=== PATIENT | female | born 1950 | race Caucasian/White ===

== ENCOUNTER 2016-09-16 10:44 | Outpatient (CLI) | payer OTHER | END 2016-09-16 10:45 | disposition home or self-care (01) | DX: D64.9 Anemia, unspecified (principal); E11.9 Type 2 diabetes mellitus without complications; E87.6 Hypokalemia ==

== ENCOUNTER 2016-10-02 14:20 | Outpatient (CLI) | payer OTHER | END 2016-10-02 23:59 | DX: Z01.812 Encounter for preprocedural laboratory examination (principal); M17.11 Unilateral primary osteoarthritis, right knee ==

== ENCOUNTER 2016-11-06 09:15 | Outpatient (CLI) | payer OTHER ==
[2016-11-06] MEDS ORDERED: DIPYRIDAMOLE 50 MG/10 ML VIAL IVP SCH (10:00)
[2016-11-06] MEDS ORDERED: LIDOCAINE/PRILOCAINE 2.5% CREAM 5 GM TUBE TOP ONE (10:00)
--- NOTE | 2016-11-06 11:37 | CARDIAC PROCEDURE NOTE ---
DATE OF SERVICE: 11/06/2016 00:00:00 PRIMARY CARE PHYSICIAN: Myla Denney DO. PROCEDURE: Pharmacologic stress test. PROCEDURE SYMPTOMS: Abnormal ECG with inferior Q-waves, preop Orthopedic Surgery. CARDIAC RISK FACTORS: Include age, diabetes, hypertension, and hyperlipidemia. PREVIOUS CARDIAC PROCEDURES: None. BASELINE ECG: NSR with IVCD. No inferior Q-waves present. Long QT. CLINICAL HISTORY: A 65-year-old female without known coronary artery disease. INITIAL RESTING VITAL SIGNS: BP 154/84, heart rate 82, height 64 inches, weight 220 pounds, BMI 37.47 . PROCEDURE AND FINDINGS: The patient's identity and date verified. Consent signed. Safety stop. Pharmacologic stress testing was performed with Persantine 0.57 mg/kg over 4 minutes. The heart rate increased to 105 beats per minute from the infusion. Blood pressure response was normal, decreasing t o 130/88 during the stress procedure. The patient developed mild infusion symptoms of chest tightness and mild dyspnea. Maximal ST segment depression with stress was 0 mm, there was a rare PVC. FINAL IMPRESSION 1. Negative electrocardiogram for ischemia in the setting of vasodilator stress. 2. Nondiagnostic stress test for angina. 3. Rare premature ventricular contraction (PVC). DISCUSSION AND RECOMMENDATIONS: Await myocardial perfusion report. JOB #: [id number] EXT JOB #:[id number]
--- NOTE | 2016-11-07 14:08 | Nuclear Medicine Report ---
EXAM: SINGLE-ISOTOPE PHARMACOLOGICAL STRESS TEST WITH REGADENOSON. SINGLE-ISOTOPE AND TWO-DAY REST/STRESS M YOCARDIAL PERFUSION SCANS WITH TOMOGRAPHIC IMAGING, QUANTITATIVE ANALYSIS, WALL MOTION ANALYSIS AND C ALCULATION OF EJECTION FRACTION. EXAM DATE: 11/06/2016 10:00 AM. CLINICAL HISTORY: Abnormal EKG, diabetes. Hypertension. COMPARISON: None. TECHNIQUE: A pharmacological stress was performed with the infusion of 56 mg Adenosine per protocol. According t o protocol, 30 mCi of Tc-99m sestamibi was injected for stress myocardial perfusion scan. Motion danica ection was applied when appropriate. The following day after the intravenous administration of 30 mCi of Tc-99m sestamibi, a rest myocardi al perfusion scan was done with tomography. Motion correction was applied when appropriate. Gated tomographic images were obtained for wall motion analysis and computation of left ventricular e jection fraction. FINDINGS: Stress perfusion images demonstrate no foci of reversible ischemia. There are no visible infarcts. The ventricle does not appear enlarged. Wall motion analysis demonstrates normal findings. The left ventricular end-diastolic volume is 106 cc. The left ventricular end-systolic volume is 30 c c. The left ventricular ejection fraction is calculated to be 71%. IMPRESSION: 1. No scintigraphic findings to indicate myocardial ischemia. Negative for infarct. 2. Left ventricular ejection fraction of 71%. 3. Normal segmental and global wall motion. 4. Normal left ventricular cavity size, no change with stress. [facility] Referring Provider Line: [phone] SITE ID: [id number]
[2016-11-13 18:09] VITALS: BP 154/84
== END 2016-11-06 09:16 | disposition home or self-care (01) ==
LOC: DI 09:15
PROVIDERS: ATTEND Family Medicine
DX: R94.31 Abnormal electrocardiogram [ECG] [EKG] (principal); E11.9 Type 2 diabetes mellitus without complications; I10 Essential (primary) hypertension; E78.2 Mixed hyperlipidemia; E66.9 Obesity, unspecified
CPT/HCPCS: 78452; 93017; A9500; J1245; J3490

== ENCOUNTER 2016-11-11 14:20 | Outpatient (CLI) | payer OTHER | END 2016-11-11 14:21 | disposition home or self-care (01) | LOC: SC 14:20 | PROVIDERS: ATTEND Specialist | DX: G47.10 Hypersomnia, unspecified (principal); G47.8 Other sleep disorders; R06.83 Snoring | CPT/HCPCS: 99205; 99212 ==

== ENCOUNTER 2016-12-23 19:21 | Outpatient (CLI) | payer MEDICARE, OTHER | END 2016-12-23 19:22 | disposition home or self-care (01) | LOC: SC 19:21 | PROVIDERS: ATTEND Internal Medicine Pulmonary Disease | DX: G47.33 Obstructive sleep apnea (adult) (pediatric) (principal); G47.61 Periodic limb movement disorder | CPT/HCPCS: 95810 ==

== ENCOUNTER 2017-01-06 14:18 | Outpatient (CLI) | payer MEDICARE | END 2017-01-06 14:19 | disposition home or self-care (01) | LOC: SC 14:18 | PROVIDERS: ATTEND Nurse Practitioner Family | DX: G47.33 Obstructive sleep apnea (adult) (pediatric) (principal); G47.61 Periodic limb movement disorder | CPT/HCPCS: 99214; G0463; 99212 ==

== ENCOUNTER 2017-01-27 11:45 | Outpatient (CLI) | payer MEDICARE ==
[2017-01-27 19:16] LABS: BASOPHILS # (AUTO) 0.1 10^3/uL (0.0-0.1); BASOPHILS % (AUTO) 1.2 %; EOSINOPHILS # (AUTO) 0.1 10^3/uL (0.0-0.7); EOSINOPHILS % (AUTO) 1.9 %; HCT - HEMATOCRIT 38.4 % (37.0-47.0); HGB - HEMOGLOBIN 12.7 g/dL (12.0-16.0); LYMPHOCYTES # (AUTO) 1.3 10^3/uL (1.5-3.5); LYMPHOCYTES % (AUTO) 24.8 %; MEAN CORPUSCULAR HEMOGLOBIN 28.8 pg (27.0-31.0); MEAN CORPUSCULAR VOLUME 87.5 fL (81.0-99.0); MEAN PLATELET VOLUME 8.2 fL (7.9-10.8); MONOCYTES # (AUTO) 0.5 10^3/uL (0.0-1.0); MONOCYTES % (AUTO) 8.7 %; NEUTROPHILS # (AUTO) 3.4 10^3/uL (1.5-6.6); NEUTROPHILS % (AUTO) 63.4 %; NUCLEATED RED BLOOD CELLS AUTO 0.1 /100WBC; RED BLOOD COUNT 4.39 10^6/uL (4.20-5.40); RED CELL DISTRIBUTION WIDTH 14.3 % (12.0-15.0); UNCORRECTED WHITE BLOOD COUNT 5.4 x10^3/uL; WHITE BLOOD COUNT 5.4 x10^3/uL (4.8-10.8)
[2017-01-27 19:30] LABS: HEMOGLOBIN A1C 0.8 g/dL
[2017-01-27 19:41] LABS: ALBUMIN/GLOBULIN RATIO 1.6 (1.0-2.2); BILIRUBIN,TOTAL 0.6 mg/dL (0.2-1.0); BUN - BLOOD UREA NITROGEN 21 mg/dL (6-20); CALCIUM 9.4 mg/dL (8.5-10.3); CARBON DIOXIDE - CO2 30 mmol/L (21-32); CHLORIDE 102 mmol/L (101-111); CHOL/HDL RATIO 3.8 (<4.4); CHOLESTEROL 193 mg/dL; CREATININE 0.9 mg/dL (0.4-1.0); GFR - MDRD 63 (>89); GLUCOSE 116 mg/dL (70-100); HDL CHOLESTEROL 51 mg/dL; LDL/HDL RATIO 1.8 (<4.4); POTASSIUM 3.6 mmol/L (3.5-5.0); SODIUM 142 mmol/L (135-145); TOTAL PROTEIN 6.9 g/dL (6.7-8.2); TRIGLYCERIDES 243 mg/dL; VLDL CHOLESTEROL 49 mg/dL
== END 2017-01-27 11:46 | disposition home or self-care (01) ==
LOC: LAB.WCP 11:45
PROVIDERS: ATTEND Family Medicine
DX: E11.65 Type 2 diabetes mellitus with hyperglycemia (principal)
CPT/HCPCS: 36415; 80053; 80061; 83036; 85025

== ENCOUNTER 2017-03-09 14:41 | Outpatient (CLI) | payer MEDICARE | END 2017-03-09 14:42 | disposition home or self-care (01) | LOC: SC 14:41 | PROVIDERS: ATTEND Nurse Practitioner Family | DX: G47.33 Obstructive sleep apnea (adult) (pediatric) (principal) | CPT/HCPCS: 99214; G0463; 99212 ==

== ENCOUNTER 2017-05-11 14:26 | Outpatient (CLI) | payer MEDICARE | END 2017-05-11 14:27 | disposition home or self-care (01) | LOC: SC 14:26 | PROVIDERS: ATTEND Nurse Practitioner Family | DX: G47.33 Obstructive sleep apnea (adult) (pediatric) (principal) | CPT/HCPCS: 99214; G0463; 99212 ==

== ENCOUNTER 2017-07-29 14:37 | Outpatient (CLI) | payer MEDICARE ==
[2017-07-29 19:01] LABS: BASOPHILS # (AUTO) 0.1 10^3/uL (0.0-0.1); BASOPHILS % (AUTO) 0.7 %; EOSINOPHILS # (AUTO) 0.1 10^3/uL (0.0-0.7); HGB - HEMOGLOBIN 12.4 g/dL (12.0-16.0); LYMPHOCYTES # (AUTO) 1.2 10^3/uL (1.5-3.5); LYMPHOCYTES % (AUTO) 17.2 %; MEAN CORPUSCULAR HGB CONC 31.5 g/dL (32.0-36.0); MEAN CORPUSCULAR VOLUME 82.6 fL (81.0-99.0); MEAN PLATELET VOLUME 8.3 fL (7.9-10.8); MONOCYTES # (AUTO) 0.4 10^3/uL (0.0-1.0); MONOCYTES % (AUTO) 6.1 %; NEUTROPHILS # (AUTO) 5.4 10^3/uL (1.5-6.6); PLT - PLATELET COUNT 380 10^3/uL (130-450); RED BLOOD COUNT 4.76 10^6/uL (4.20-5.40); RED CELL DISTRIBUTION WIDTH 15.6 % (12.0-15.0); WHITE BLOOD COUNT 7.2 x10^3/uL (4.8-10.8)
[2017-07-29 19:22] LABS: ALBUMIN 4.2 g/dL (3.2-5.5); ALBUMIN/GLOBULIN RATIO 1.4 (1.0-2.2); ALKALINE PHOSPHATASE 35 IU/L (42-121); ALT ALANINE AMINOTRANSFERASE 18 IU/L (10-60); AST ASPARTATE AMINOTRANSFERASE 23 IU/L (10-42); BILIRUBIN,TOTAL 0.4 mg/dL (0.2-1.0); BUN - BLOOD UREA NITROGEN 21 mg/dL (6-20); CALCIUM 9.5 mg/dL (8.5-10.3); CARBON DIOXIDE - CO2 29 mmol/L (21-32); CHLORIDE 103 mmol/L (101-111); CHOL/HDL RATIO 3.8 (<4.4); CHOLESTEROL 189 mg/dL; GFR - MDRD 56 (>89); GLUCOSE 179 mg/dL (70-100); HDL CHOLESTEROL 50 mg/dL; LDL CHOLESTEROL,CALCULATED 75 mg/dL; LDL/HDL RATIO 1.5 (<4.4); SODIUM 141 mmol/L (135-145); TOTAL PROTEIN 7.2 g/dL (6.7-8.2); VLDL CHOLESTEROL 64 mg/dL
[2017-07-29 19:35] LABS: HB2 TOTAL 13.9 g/dL; HEMOGLOBIN A1C 0.7 g/dL; HEMOGLOBIN A1C % 6.8 % (4.6-6.2)
== END 2017-07-29 14:38 | disposition home or self-care (01) ==
LOC: LAB.WCP 14:37
PROVIDERS: ATTEND Family Medicine
DX: E11.9 Type 2 diabetes mellitus without complications (principal)
CPT/HCPCS: 36415; 80053; 80061; 82043; 83036; 83721; 84443; 85025

== ENCOUNTER 2017-08-17 13:19 | Outpatient (CLI) | payer MEDICARE | END 2017-08-17 13:20 | disposition home or self-care (01) | LOC: SC 13:19 | PROVIDERS: ATTEND Nurse Practitioner Family | DX: G47.33 Obstructive sleep apnea (adult) (pediatric) (principal) | CPT/HCPCS: 99213; G0463; 99212 ==

== ENCOUNTER 2018-01-25 09:59 | Outpatient (CLI) | payer MEDICARE ==
[2018-01-25 13:27] LABS: ALBUMIN 4.1 g/dL (3.2-5.5); ALBUMIN/GLOBULIN RATIO 1.4 (1.0-2.2); BILIRUBIN,TOTAL 0.7 mg/dL (0.2-1.0); CALCIUM 9.6 mg/dL (8.5-10.3); CREATININE 0.6 mg/dL (0.4-1.0)
[2018-01-25 14:12] LABS: HB2 TOTAL 14.7 g/dL; HEMOGLOBIN A1C 0.8 g/dL; HEMOGLOBIN A1C % 7.1 % (4.6-6.2)
== END 2018-01-25 10:00 ==
LOC: LAB.WCP 09:59
PROVIDERS: ATTEND Family Medicine
DX: E11.9 Type 2 diabetes mellitus without complications (principal)
CPT/HCPCS: 36415; 80053; 83036

== ENCOUNTER 2018-02-05 12:19 | Outpatient (CLI) | payer MEDICARE | END 2018-02-05 12:20 | disposition home or self-care (01) | LOC: DI 12:19 | PROVIDERS: ATTEND Family Medicine | DX: R01.1 Cardiac murmur, unspecified (principal); I51.7 Cardiomegaly | CPT/HCPCS: 93306 ==

== ENCOUNTER 2018-02-26 17:31 | Outpatient (CLI) | payer MEDICARE ==
--- NOTE | 2018-02-26 18:29 | Ultrasound Report ---
Reason: LEG PAIN, LEFT Procedure Date: 02/26/2018 Accession Number: [id number] / [id number] Procedure: US - Duplex Ext Veins Left CPT Code: FULL RESULT: EXAM: LEFT LOWER EXTREMITY VENOUS ULTRASOUND EXAM DATE: 02/26/2018 06:13 PM. CLINICAL HISTORY: LEG PAIN, LEFT. COMPARISON: None. TECHNIQUE: Real-time sonographic vascular imaging was performed by the road consultant through the lower extremity utilizing both color-flow and Doppler spectral analysis. Multiple termite control representative static images were saved for review. FINDINGS: Common Femoral Vein (CFV): Normal. CFV-GSV Junction: Left greater saphenous vein thrombosis seen approximately an inch from the junction with the common femoral vein. Left greater saphenous vein superficial thrombosis seen diffusely. Profunda Femoral Vein (PFV): Normal. Femoral Vein (FV) Prox: Normal. Femoral Vein (FV) Mid: Normal. Femoral Vein (FV) Dist: Normal. Popliteal Vein: Normal. Posterior Tibial Veins: Normal. Peroneal Veins: Normal. Contralateral Side CFV: Normal. IMPRESSION: Left greater saphenous vein superficial thrombosis as above. No evidence for deep venous thrombosis. [facility] The call report notification system was initiated by Dr. Ban Elder at 18:22 hrs on 02/26/18. The above findings were discussed with JONAH Humphries by Dr. Ban Elder at 18:25 hrs on 02/26/18.
== END 2018-02-26 17:32 | disposition home or self-care (01) ==
LOC: DI 17:31
PROVIDERS: ATTEND Nurse Practitioner
DX: I82.812 Embolism and thrombosis of superficial veins of left lower extremity (principal)

== ENCOUNTER 2018-03-19 13:55 | Outpatient (CLI) | payer MEDICARE ==
[2018-03-19 19:28] LABS: HGB - HEMOGLOBIN 13.4 g/dL (12.0-16.0); MEAN CORPUSCULAR HEMOGLOBIN 28.3 pg (27.0-31.0); MEAN CORPUSCULAR HGB CONC 33.3 g/dL (32.0-36.0); MEAN CORPUSCULAR VOLUME 85.1 fL (81.0-99.0); MEAN PLATELET VOLUME 8.3 fL (7.9-10.8); RED BLOOD COUNT 4.73 10^6/uL (4.20-5.40); RED CELL DISTRIBUTION WIDTH 14.9 % (12.0-15.0)
[2018-03-19 20:04] LABS: INR 4.1 (0.8-1.2); PT - PROTHROMBIN TIME 43.7 secs (9.9-12.6)
== END 2018-03-19 13:56 | disposition home or self-care (01) ==
LOC: LAB.WCP 13:55
PROVIDERS: ATTEND Nurse Practitioner
DX: Z79.01 Long term (current) use of anticoagulants (principal); I80.00 Phlebitis and thrombophlebitis of superficial vessels of unspecified lower extremity
CPT/HCPCS: 36415; 85027; 85610; 85730

== ENCOUNTER 2018-12-13 10:08 | Outpatient (CLI) | payer MEDICARE ==
[2018-12-13 12:28] LABS: BASOPHILS % (AUTO) 0.7 %; EOSINOPHILS # (AUTO) 0.2 10^3/uL (0.0-0.7); EOSINOPHILS % (AUTO) 3.1 %; HGB - HEMOGLOBIN 12.8 g/dL (12.0-16.0); LYMPHOCYTES # (AUTO) 1.1 10^3/uL (1.5-3.5); LYMPHOCYTES % (AUTO) 17.8 %; MEAN CORPUSCULAR HEMOGLOBIN 27.9 pg (27.0-31.0); MEAN CORPUSCULAR HGB CONC 30.9 g/dL (32.0-36.0); MEAN CORPUSCULAR VOLUME 90.2 fL (81.0-99.0); MONOCYTES # (AUTO) 0.5 10^3/uL (0.0-1.0); MONOCYTES % (AUTO) 8.3 %; NEUTROPHILS # (AUTO) 4.1 10^3/uL (1.5-6.6); NEUTROPHILS % (AUTO) 69.8 %; PLT - PLATELET COUNT 306 10^3/uL (130-450); RED BLOOD COUNT 4.59 10^6/uL (4.20-5.40); RED CELL DISTRIBUTION WIDTH 14.8 % (12.0-15.0); WHITE BLOOD COUNT 5.9 x10^3/uL (4.8-10.8)
[2018-12-13 12:42] LABS: ALBUMIN 4.1 g/dL (3.2-5.5); ALBUMIN/GLOBULIN RATIO 1.5 (1.0-2.2); ALKALINE PHOSPHATASE 38 IU/L (42-121); ALT ALANINE AMINOTRANSFERASE 20 IU/L (10-60); AST ASPARTATE AMINOTRANSFERASE 20 IU/L (10-42); BILIRUBIN,TOTAL 0.7 mg/dL (0.2-1.0); BUN - BLOOD UREA NITROGEN 18 mg/dL (6-20); CALCIUM 9.1 mg/dL (8.5-10.3); CARBON DIOXIDE - CO2 28 mmol/L (21-32); CHLORIDE 105 mmol/L (101-111); CHOL/HDL RATIO 3.6 (<4.4); CHOLESTEROL 191 mg/dL; CREATININE 0.8 mg/dL (0.4-1.0); GFR - MDRD 72 (>89); GLUCOSE 148 mg/dL (70-100); HB2 TOTAL 13.9 g/dL; HDL CHOLESTEROL 53 mg/dL; HEMOGLOBIN A1C 0.73 g/dL; LDL CHOLESTEROL,CALCULATED 111 mg/dL; LDL/HDL RATIO 2.1 (<4.4); SODIUM 144 mmol/L (135-145); TOTAL PROTEIN 6.8 g/dL (6.7-8.2); VLDL CHOLESTEROL 27 mg/dL
== END 2018-12-13 10:09 | disposition home or self-care (01) ==
LOC: LAB.WCP 10:08
PROVIDERS: ATTEND Family Medicine
DX: E11.9 Type 2 diabetes mellitus without complications (principal); E03.9 Hypothyroidism, unspecified
CPT/HCPCS: 36415; 80053; 80061; 83036; 83721; 84443; 85025

== ENCOUNTER 2018-12-27 11:31 | Outpatient (CLI) | payer MEDICARE ==
--- NOTE | 2018-12-28 08:32 | Mammography Report ---
Reason: SCREENING MAMMOGRAM FOR BREAST CANCER Procedure Date: 12/27/2018 Accession Number: [id number] / [id number] Procedure: MGN - Screening Mammo Dig Bilat CPT Code: FULL RESULT: EXAM: Screening Mammo Dig Bilat DATE: 12/27/2018 11:53 AM CLINICAL HISTORY: Screening encounter. History of benign right breast biopsy. TECHNIQUE: (B) - Bilateral CC and MLO views were obtained. COMPARISON: 02/25/2016 through 09/01/2012. PARENCHYMAL PATTERN: (A) - The breast(s) demonstrate(s) scattered fibroglandular densities. FINDINGS: There are no suspicious masses, calcifications, or areas of distortion. IMPRESSION: Negative examination. BI-RADS category 1. RECOMMENDATION: (ANNUAL) - Recommend routine annual screening mammography. BI-RADS CATEGORY: (1) - Negative. STANDARD QUALIFYING STATEMENTS: 1. This examination was not reviewed with the aid of Computer-Aided Detection (CAD). 2. A negative or benign imaging report should not preclude biopsy if clinically suspicious findings are present. 3. Dense breasts may obscure an underlying neoplasm. 4. This examination was reviewed without the aid of 3D breast imaging (tomosynthesis).
== END 2018-12-27 11:32 | disposition home or self-care (01) ==
LOC: DI.N 11:31
PROVIDERS: ATTEND Family Medicine
DX: Z12.31 Encounter for screening mammogram for malignant neoplasm of breast (principal)
CPT/HCPCS: 77067

== ENCOUNTER 2019-01-05 10:26 | Outpatient (CLI) | payer MEDICARE ==
[2019-01-05] MEDS ORDERED: IOVERSOL 320 100 ML VIAL IVP ONE ×2 (10:40→14:20)
--- NOTE | 2019-01-06 14:02 | CT Report ---
Reason: KIDNEY LESION Procedure Date: 01/05/2019 Accession Number: [id number] / [id number] Procedure: CT - ABDOMEN/PELVIS W/WO CPT Code: FULL RESULT: EXAM: CT ABDOMEN AND PELVIS WITHOUT AND WITH CONTRAST EXAM DATE: 01/05/2019 10:55 AM. CLINICAL HISTORY: Kidney lesion. COMPARISONS: ABDOMEN/PELVIS W/ 03/31/2015 10:07 AM. TECHNIQUE: Multiphase helical imaging was performed through the abdomen/kidneys and pelvis in the precontrast, postcontrast and delayed phases. IV Contrast: Yes. Reconstructions: Coronal and sagittal. In accordance with CT protocol optimization, one or more of the following dose reduction techniques were utilized for this exam: automated exposure control, adjustment of mA and/or KV based on patient size, or use of iterative reconstructive technique. FINDINGS: Lung Bases: Severe coronary and mitral annular calcifications. Liver: Unremarkable. No suspicious masses. Gallbladder/Bile Ducts: Unremarkable post cholecystectomy. Spleen: Unremarkable. Pancreas: Unremarkable. Adrenal Glands: Chronic low-density nodularity, consistent with benign adenomas. No suspicious adrenal mass.. Kidneys: Bilateral renal cysts, right more than left. Cysts have enlarged compared to the 2014 study but there are no suspicious features such as thick enhancing septations or nodules. No stone disease, suspicious masses or hydronephrosis. Largest cyst on the right measures 32 x 30 x 30 mm, slightly larger than prior study. Largest on the left measures 16 x 17 x 19 mm, decreased from prior study, consistent with a benign lesion. Peritoneal Cavity/Bowel: Colonic diverticulosis. No bowel obstruction or inflammatory process seen. No free air or significant free fluid. No masses or adenopathy. The appendix is normal. No excessive stool burden. Pelvic Organs: Bladder, uterus, and adnexa appear unremarkable. Vasculature: No aneurysms or other significant abnormality. Bones: L5 pars defects with grade 1 anterolisthesis of L5 on S1. Advanced degenerative changes in the lumbar spine without an acute abnormality. Other: None. IMPRESSION: 1. Bilateral renal cysts without suspicious mass seen on either side. 2. Chronic low-density adrenal nodularity also benign. 3. Previous cholecystectomy. 4. Colonic diverticulosis. 5. Severe coronary and mitral annular calcifications. [facility]
== END 2019-01-05 10:27 | disposition home or self-care (01) ==
LOC: DI 10:26
PROVIDERS: ATTEND Family Medicine
DX: N28.1 Cyst of kidney, acquired (principal); K57.30 Diverticulosis of large intestine without perforation or abscess without bleeding; I25.10 Atherosclerotic heart disease of native coronary artery without angina pectoris
CPT/HCPCS: 74178; Q9967

== ENCOUNTER 2019-04-11 13:13 | Outpatient (CLI) | payer MEDICARE, OTHER ==
--- NOTE | 2019-04-11 14:44 | SLEEP CARE CONSULTATION ---
Information from patient questionnaire entered by Elda Powers. I have reviewed and concur with the information entered by Elda Powers. This document represents the service I personally performed and the decisions made by me, Yuki Lindquist, RN, MSN, FISHER EEL. History of Present Illness Previous diagnosis: Moderate, Obstructive Sleep Apnea-Hypopnea Syndrome AHI: 21.4 Reason for CPAP/BiPAP follow up: annual Equipment type: CPAP Equipment obtained from: [employer] Mask style: Nasal pillows Mask brand: Resmed Backup mask available: Yes Last cushion change: a month ago CPAP Compliance Data - Data Reviewed with Patient Average duration of nightly device use: 8h 25m Compliance rate %: 98 Current pressure setting (cmH2O): 9 Average residual AHI: 0.6 Average large leak: 3.1 liters per minute Subjective Missed days of use due to: reports: travel (unexpected overnight) Patient concerns: reports: mask discomfort (pressure of mask from sleeping predominately on her left side. ), air blowing in eyes (on face), nasal congestion (wakes with runny nose), other (she reports difficulty falling asleep due to things on mind intermittently ). denies: aerophagia, mask leak noise, condensation in mask/hose, dry mouth, nose, throat, epistaxis Observed to snore while using device: No Current pressure setting perceived as: comfortable On therapy, patient: reports: sleeping better, awakening more refreshed, being more awake and alert during the day, more rested overall. denies: drowsiness while driving Initial [place] Sleepiness Scale score: 9 Current [place] Sleepiness Scale score: 7 Allergies and Home Medications Known drug allergies: Yes (quinine and bactrin) Home medication list reviewed: Yes Allergy and home medication list: Medication Name (generic/name brand) Strength & Dosage HCTZ 25mg tab one daily Multivitamin Tab one daily Vitamin C 1000mg tab one daily Aspirin EC 81mg tab one daily Metoprolol Tartrate 50mg tab one BID Lisinopril 10mg am and 20 mg PM Fenofibrate 160mg tab one daily Levothyroxine 75mcg tab one daily Atorvastatin 40mg tab one daily at bedtime Vitamin D 400unit cap one daily CA-MG-ZN 333-133-8.3mg Tab one daily Glucosamine 1500mg cap one daily B Complex 100 Tab one daily Felodipine 10mg tab one daily Metformin HCl 500mg tab one daily Potassium Chloride Jina CR 20MEQ tab one daily Tylenol Extra Strength 1000mg tab one BID Humulin 70/30 Kwikpen Inject 39 unit w/bfast and dinner Allergies: Bactrim, Quinine Impression and Plan 1. Obstructive Sleep Apnea-Hypopnea Syndrome, moderate, with good treatment compliance and excellent apnea control. On CPAP therapy, the patient has better sleep quality and is more rested overall. For mask concerns of headgear pressure near left eye, I showed the CPAP pillow. This and other styles can be bought online for about $60. I also showed her thick cloth barriers that can be used and ordered by [employer] that may assist comfort. Pamphlet given. I also suggested trying sleeping in other positions but states she feels she cannot breath our of her nose when sleeps on her other side and her sinuses feel impacted. Thus she is advised to discuss further with her PCP. She may need an ENT referral for further evaluation. For rhinorrhea that occurs when first removes CPAP, I explained to patient it could be due to too dry of air. I instructed her how to change humidity and heated hose with rationale and printout from [employer]. Patient's apnea severity and rationale for treatment to reduce apnea, improve sleep quality and reduce cardiovascular and cerebrovascular events was reviewed. I also reviewed the benefit of consistent device use of CPAP for hypertension, diabetes, gastric reflux. 2. Insomnia, intermittently that can occur weekly or not at all for a few months. Generally it is due to things on mind. She also reports sleeping in when has diffculty getting to sleep. Thus she was advised of the importance of a regular wake time to improve sleep efficiency and ability to go to sleep at a regular time. If unable to sleep duet to things on her mind, she was advised to leave bedroom, write out concerns as a release. Then she is to distract the brain and read something relaxing until sleepy. This process is to be repeated as often as necessary. AASM How to Sleep Better given and reviewed. If insomnia persists or worsen, she is to follow up for further evaluation and complete a sleep diary. * Continue CPAP pressure at 9 cmH2O * Try CPAP mask. * Try cloth barriers. * Implement methods to reduce insomnia * Notify me if snoring with mask or feeling that the pressure is too much or too little * Attempt to lose weight * Follow up with PCP re sinus / nose concerns. * copy of compliance to patient per request * Return for follow up in 1 year , or sooner if concerns arise I spent 100% of this 35 minute visit face to face with the patient with greater than 50% of this was spent time counseling the patient and coordination of care.
== END 2019-04-11 13:14 | disposition home or self-care (01) ==
LOC: SC 13:13
PROVIDERS: ATTEND Nurse Practitioner Family
DX: G47.33 Obstructive sleep apnea (adult) (pediatric) (principal); G47.00 Insomnia, unspecified
CPT/HCPCS: 99212; 99214

== ENCOUNTER 2019-08-04 09:47 | Outpatient (CLI) | payer MEDICARE ==
[2019-08-04 17:31] LABS: HB2 TOTAL 13.9 g/dL; HEMOGLOBIN A1C 0.78 g/dL; HEMOGLOBIN A1C % 7.3 % (4.6-6.2)
[2019-08-04 17:33] LABS: CALCIUM 9.3 mg/dL (8.5-10.3)
[2019-08-04 18:17] LABS: CREATININE,URINE 126.2 mg/dL; MICROALBUM/CREATININE RATIO,UR 733.8 ug/mg (<30.0); MICROALBUMIN,URINE 92.6 mg/dL (0-300.0)
== END 2019-08-04 09:48 | disposition home or self-care (01) ==
LOC: LAB.S 09:47
PROVIDERS: ATTEND Family Medicine
DX: E11.9 Type 2 diabetes mellitus without complications (principal)
CPT/HCPCS: 36415; 80048; 82043; 82570; 83036

== ENCOUNTER 2019-08-19 13:19 | Outpatient (CLI) | payer MEDICARE ==
--- NOTE | 2019-08-19 22:59 | CT Report ---
Reason: JAW PAIN Procedure Date: 08/19/2019 Accession Number: [id number] / [id number] Procedure: CT - MAXILLOFACIAL WO CPT Code: Final Report FULL RESULT: EXAM: CT MAXILLOFACIAL WITHOUT CONTRAST EXAM DATE: 08/19/2019 01:35 PM. CLINICAL HISTORY: JAW PAIN. COMPARISONS: None. TECHNIQUE: Thin-section axial images were acquired of the face without contrast. Post-processing: Coronal and sagittal reformats. Other: None. In accordance with CT protocol optimization, one or more of the following dose reduction techniques were utilized for this exam: automated exposure control, adjustment of mA and/or KV based on patient size, or use of iterative reconstructive technique. FINDINGS: Soft Tissue: The infratemporal fossa and parapharyngeal spaces are unremarkable. Orbits: Symmetric and unremarkable. Bones: No fracture or bone lesion. Temporomandibular Joints: There is left worse than right osteoarthritis of the temporomandibular joints, with subchondral cyst formation in the left mandibular condyle. Sinuses: Chronic left maxillary mucosal thickening. Other: None. 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 Chronic left maxillary sinusitis. [facility]
== END 2019-08-19 13:20 | disposition home or self-care (01) ==
LOC: DI 13:19
PROVIDERS: ATTEND Family Medicine
DX: M19.91 Primary osteoarthritis, unspecified site (principal); J32.0 Chronic maxillary sinusitis
CPT/HCPCS: 70486

== ENCOUNTER 2020-02-07 08:00 | Outpatient (CLI) | payer MEDICARE ==
[2020-02-07 18:21] LABS: BASOPHILS # (AUTO) 0.1 10^3/uL (0.0-0.1); BASOPHILS % (AUTO) 0.8 %; EOSINOPHILS # (AUTO) 0.1 10^3/uL (0.0-0.7); HGB - HEMOGLOBIN 12.8 g/dL (12.0-16.0); LYMPHOCYTES # (AUTO) 1.3 10^3/uL (1.5-3.5); LYMPHOCYTES % (AUTO) 20.6 %; MEAN CORPUSCULAR HEMOGLOBIN 29.8 pg (27.0-31.0); MEAN CORPUSCULAR HGB CONC 32.1 g/dL (32.0-36.0); MEAN CORPUSCULAR VOLUME 92.8 fL (81.0-99.0); MEAN PLATELET VOLUME 10.2 fL (7.9-10.8); MONOCYTES # (AUTO) 0.5 10^3/uL (0.0-1.0); NEUTROPHILS # (AUTO) 4.4 10^3/uL (1.5-6.6); NEUTROPHILS % (AUTO) 68.1 %; PLT - PLATELET COUNT 328 10^3/uL (130-450); RED CELL DISTRIBUTION WIDTH 13.5 % (12.0-15.0); WHITE BLOOD COUNT 6.5 x10^3/uL (4.8-10.8)
[2020-02-07 18:28] LABS: CREATININE,URINE 69.9 mg/dL; MICROALBUM/CREATININE RATIO,UR 430.6 ug/mg (<30.0); MICROALBUMIN,URINE 30.1 mg/dL (0-300.0)
[2020-02-07 18:46] LABS: ALBUMIN 4.5 g/dL (3.2-5.5); ALBUMIN/GLOBULIN RATIO 1.7 (1.0-2.2); ALKALINE PHOSPHATASE 35 IU/L (42-121); ALT ALANINE AMINOTRANSFERASE 21 IU/L (10-60); AST ASPARTATE AMINOTRANSFERASE 19 IU/L (10-42); BILIRUBIN,TOTAL 0.8 mg/dL (0.2-1.0); BUN - BLOOD UREA NITROGEN 31 mg/dL (6-20); CALCIUM 9.5 mg/dL (8.5-10.3); CARBON DIOXIDE - CO2 25 mmol/L (21-32); CHLORIDE 108 mmol/L (101-111); CHOL/HDL RATIO 4.4 (<4.4); CHOLESTEROL 222 mg/dL; GLUCOSE 210 mg/dL (70-100); HDL CHOLESTEROL 51 mg/dL; LDL CHOLESTEROL,CALCULATED 113 mg/dL; LDL/HDL RATIO 2.2 (<4.4); SODIUM 140 mmol/L (135-145); TOTAL PROTEIN 7.2 g/dL (6.7-8.2); VLDL CHOLESTEROL 58 mg/dL
[2020-02-07 18:57] LABS: HEMOGLOBIN A1c% 6.9 % (4.27-6.07)
== END 2020-02-07 23:59 | disposition home or self-care (01) ==
LOC: LAB.WCP 08:00
PROVIDERS: ATTEND Family Medicine
DX: I10 Essential (primary) hypertension (principal); E11.9 Type 2 diabetes mellitus without complications; E03.9 Hypothyroidism, unspecified; E78.5 Hyperlipidemia, unspecified
CPT/HCPCS: 36415; 80053; 80061; 82043; 82570; 83036; 83721; 84443; 85025

== ENCOUNTER 2020-05-16 11:44 | Outpatient (CLI) | payer MEDICARE ==
--- NOTE | 2020-05-16 11:36 | SLEEP CARE CONSULTATION ---
Information from patient questionnaire entered by Samra Bull. I have reviewed and concur with the information entered by Samra Bull. This document represents the service I personally performed and the decisions made by me, Yuki Lindquist, RN, MSN, FRIT MAKER. History of Present Illness Service Date and Time: 05/16/2020 1100 Previous diagnosis: Moderate, Obstructive Sleep Apnea-Hypopnea Syndrome AHI: 21.4 (in 2017) Reason for follow up: annual (last seen 03/2019) Equipment type: CPAP Equipment obtained from: [employer] (getting supplies as needed) Mask style: Nasal pillows Mask brand: Resmed Backup mask available: Yes (old mask ) Last cushion change: month ago Prior sleep studies: Yes Year and Where: 2017 - [facility] Type of Sleep Study: Polysomnography CPAP Compliance Data - Data Reviewed with Patient Average duration of nightly device use: 8 hr 22 min Compliance rate %: 100 (180 days) Current pressure setting (cmH2O): 9 Humidity settin Average residual AHI: 0.8 Subjective Patient concerns: reports: mask discomfort (nasal discomfort right nostril with scant blood monthly ), mask leak noise (and cold air 70% of the time ), nasal congestion (chronic nasal congestion), other (waking to cold air from CPAP - unsure why - it is comfortable when goes to sleep). denies: aerophagia, air blowing in eyes, condensation in mask/hose, dry mouth, nose, throat, epistaxis Observed to snore while using device: No Current pressure setting perceived as: comfortable On therapy, patient: reports: sleeping better, awakening more refreshed, being more awake and alert during the day, more rested overall. denies: drowsiness while driving Initial [place] Sleepiness Scale score: 9 (in 2017) Allergies and Home Medications Home medication list reviewed: No (states no changes) Review of Systems Review of systems same as previous: Yes (states no changes ) Physical Exam Height: 5 ft 4 in Impression and Plan 1. Obstructive Sleep Apnea-Hypopnea Syndrome, moderate, with good treatment compliance and good apnea control. On CPAP therapy, the patient has better sleep quality and is more rested overall. For mask concerns, I will order a mask ref itting. Until then I will have her change her cushions every 2 weeks instead of monthly. I will also have [employer] instruct patient to adjust her device to make more comfortable in temperature throughout the night. If indicated, to replace humidifier unit. Hopefully this can be done at her mask refitting. For her chronic nasal congestion persisting throughout the day, I advised her to follow up with her PCP for further evaluation. The nasal congestion is not interfering with her CPAP use but is requiring her to blow her nose frequently through the day. Patient's apnea severity and rationale for treatment to reduce apnea, improve sleep quality and reduce cardiovascular and cerebrovascular events was reviewed. * Continue CPAP pressure at 9 cmH2O * Mask refitting * Instruction in humidity / heated hose adjustment * Notify me if snoring with mask or feeling that the pressure is too much or too little * Call this office if any problems using CPAP * Return for follow up in 1 year, or sooner if concerns arise Visit Type: Telehealth Phone ([employer]) Patient Location: Home Location of Provider: Home Patient agrees and consents to this telehealth visit type: Yes Patient agrees to have their insurance billed: Yes Time Spent with Patient (minutes): 10 Provider Statement: I spent 100% of the Telehealth Phone Call with the patient with greater than 50% spent counseling the patient and coordination of care.
== END 2020-05-16 11:45 | disposition home or self-care (01) ==
LOC: SC 11:44
PROVIDERS: ATTEND Nurse Practitioner Family
DX: G47.33 Obstructive sleep apnea (adult) (pediatric) (principal)

== ENCOUNTER 2020-08-02 13:16 | Outpatient (CLI) | payer MEDICARE ==
[2020-08-02 18:47] LABS: BASOPHILS # (AUTO) 0.1 10^3/uL (0.0-0.1); BASOPHILS % (AUTO) 0.8 %; EOSINOPHILS # (AUTO) 0.2 10^3/uL (0.0-0.7); EOSINOPHILS % (AUTO) 2.5 %; HGB - HEMOGLOBIN 12.7 g/dL (12.0-16.0); LYMPHOCYTES # (AUTO) 1.5 10^3/uL (1.5-3.5); LYMPHOCYTES % (AUTO) 20.4 %; MEAN CORPUSCULAR HEMOGLOBIN 29.7 pg (27.0-31.0); MEAN CORPUSCULAR HGB CONC 31.8 g/dL (32.0-36.0); MEAN CORPUSCULAR VOLUME 93.7 fL (81.0-99.0); MEAN PLATELET VOLUME 10.3 fL (7.9-10.8); MONOCYTES # (AUTO) 0.5 10^3/uL (0.0-1.0); MONOCYTES % (AUTO) 7.4 %; NEUTROPHILS # (AUTO) 4.9 10^3/uL (1.5-6.6); NEUTROPHILS % (AUTO) 68.5 %; PLT - PLATELET COUNT 349 10^3/uL (130-450); RED BLOOD COUNT 4.27 10^6/uL (4.20-5.40); RED CELL DISTRIBUTION WIDTH 13.5 % (12.0-15.0); WHITE BLOOD COUNT 7.1 x10^3/uL (4.8-10.8)
[2020-08-02 19:20] LABS: ALBUMIN 4.3 g/dL (3.2-5.5); ALBUMIN/GLOBULIN RATIO 1.7 (1.0-2.2); ALKALINE PHOSPHATASE 34 IU/L (42-121); ALT ALANINE AMINOTRANSFERASE 20 IU/L (10-60); AST ASPARTATE AMINOTRANSFERASE 22 IU/L (10-42); BILIRUBIN,TOTAL 0.4 mg/dL (0.2-1.0); BUN - BLOOD UREA NITROGEN 28 mg/dL (6-20); CALCIUM 9.6 mg/dL (8.5-10.3); CARBON DIOXIDE - CO2 26 mmol/L (21-32); CHLORIDE 102 mmol/L (101-111); CHOL/HDL RATIO 4.4 (<4.4); CHOLESTEROL 243 mg/dL; CRP - C-REACTIVE PROTEIN < 1.0 mg/dL (0-1.0); GLUCOSE 152 mg/dL (70-100); HDL CHOLESTEROL 55 mg/dL; LDL CHOLESTEROL,CALCULATED 129 mg/dL; LDL/HDL RATIO 2.3 (<4.4); TOTAL PROTEIN 6.8 g/dL (6.7-8.2); URIC ACID 4.7 mg/dL (2.6-7.2); VLDL CHOLESTEROL 59 mg/dL
[2020-08-02 19:27] LABS: CREATININE,URINE 75.3 mg/dL; MICROALBUM/CREATININE RATIO,UR 345.3 ug/mg (<30.0)
[2020-08-02 19:47] LABS: RHEUMATOID FACTOR NEGATIVE (Negative)
[2020-08-02 20:59] LABS: HEMOGLOBIN A1c% 6.8 % (4.27-6.07)
== END 2020-08-02 23:59 | disposition home or self-care (01) ==
LOC: LAB.WCP 13:16
PROVIDERS: ATTEND Family Medicine
DX: E11.9 Type 2 diabetes mellitus without complications (principal); M25.50 Pain in unspecified joint
CPT/HCPCS: 36415; 80053; 80061; 82043; 82570; 83036; 83721; 84443; 84550; 85025; 85651; 86140; 86430

== ENCOUNTER 2020-08-22 14:32 | Outpatient (CLI) | payer MEDICARE ==
--- NOTE | 2020-08-23 13:24 | Mammography Report ---
BILATERAL DIGITAL SCREENING MAMMOGRAM 3D/2D: 08/22/2020 CLINICAL: Routine screening. Comparison is made to exams dated: 12/27/2018 mammogram, 02/25/2016 mammogram, 02/05/2015 mammogram, mammogram, 03/24/2011 mammogram, and 03/07/2010 mammogram - [facility]. The tissue of both breasts is predominantly fatty. No significant masses, calcifications, or other findings are seen in either breast. There has been no significant interval change. IMPRESSION: NEGATIVE There is no mammographic evidence of malignancy. A 1 year screening mammogram is recommended. This exam was interpreted at Station ID: [id number]. NOTE: For mammograms, a report in lay terms will be sent to the patient. Approximately 15% of breast malignancies will not be visualized mammographically. In the management of a palpable breast mass, a negative mammogram must not discourage biopsy of a clinically suspicious lesion. Electronically Signed By: Ritesh Morris M.D., jr/kale:08/22/2020 15:24:47 ACR BI-RADS Category 1: Negative 3341F PARENCHYMAL PATTERN: (F) - The breast(s) demonstrate(s) diffuse fatty replacement. BI-RADS CATEGORY: (1) - 1 RECOMMENDATION: (ANNUAL) - Recommend routine annual screening mammography. [id number] 1 year screening LATERALITY: (B)
== END 2020-08-22 14:33 | disposition home or self-care (01) ==
LOC: DI.N 14:32
DX: Z12.31 Encounter for screening mammogram for malignant neoplasm of breast (principal)

== ENCOUNTER 2020-08-22 14:34 | Outpatient (CLI) | payer MEDICARE ==
--- NOTE | 2020-08-22 16:47 | XRAY Report ---
PROCEDURE: Knee 4 View LT INDICATIONS: LEFT KNEE PAIN TECHNIQUE: 4 views of the left knee(s) were acquired. COMPARISON: None. FINDINGS: Bones: No fractures or dislocations. No suspicious bony lesions. There is moderate to severe media l medial and moderate lateral as well as patellofemoral compartment narrowing. Small periarticular os teophytes are present most severe laterally. No erosions are identified. Soft tissues: Mild joint effusion. No suspicious soft tissue calcifications. IMPRESSION: Tricompartmental arthritic changes as above. Reviewed by: Carolina Jackson MD on 08/22/2020 4:46 PM PST Approved by: Carolina Jackson MD on 08/22/2020 4:46 PM PST Station ID: [id number]
== END 2020-08-22 14:35 | disposition home or self-care (01) ==
LOC: DI.N 14:34
PROVIDERS: ATTEND Family Medicine
DX: M25.562 Pain in left knee (principal); M17.12 Unilateral primary osteoarthritis, left knee

== ENCOUNTER 2021-01-23 08:00 | Outpatient (CLI) | payer MEDICARE ==
[2021-01-23 17:54] LABS: BASOPHILS % (AUTO) 0.5 %; EOSINOPHILS # (AUTO) 0.2 10^3/uL (0.0-0.7); EOSINOPHILS % (AUTO) 2.4 %; HCT - HEMATOCRIT 41.6 % (37.0-47.0); HGB - HEMOGLOBIN 12.6 g/dL (12.0-16.0); LYMPHOCYTES # (AUTO) 1.4 10^3/uL (1.5-3.5); LYMPHOCYTES % (AUTO) 21.6 %; MEAN CORPUSCULAR HGB CONC 30.3 g/dL (32.0-36.0); MEAN CORPUSCULAR VOLUME 95.9 fL (81.0-99.0); MEAN PLATELET VOLUME 9.9 fL (7.9-10.8); MONOCYTES # (AUTO) 0.5 10^3/uL (0.0-1.0); MONOCYTES % (AUTO) 8.2 %; NEUTROPHILS # (AUTO) 4.2 10^3/uL (1.5-6.6); PLT - PLATELET COUNT 341 10^3/uL (130-450); RED BLOOD COUNT 4.34 10^6/uL (4.20-5.40); RED CELL DISTRIBUTION WIDTH 14.2 % (12.0-15.0); WHITE BLOOD COUNT 6.2 x10^3/uL (4.8-10.8)
[2021-01-23 18:25] LABS: ALBUMIN 4.5 g/dL (3.2-5.5); ALBUMIN/GLOBULIN RATIO 1.7 (1.0-2.2); ALKALINE PHOSPHATASE 32 IU/L (42-121); ALT ALANINE AMINOTRANSFERASE 21 IU/L (10-60); AST ASPARTATE AMINOTRANSFERASE 23 IU/L (10-42); BILIRUBIN,TOTAL 0.7 mg/dL (0.2-1.0); BUN - BLOOD UREA NITROGEN 21 mg/dL (6-20); CALCIUM 9.6 mg/dL (8.5-10.3); CARBON DIOXIDE - CO2 26 mmol/L (21-32); CHLORIDE 107 mmol/L (101-111); CHOL/HDL RATIO 3.2 (<4.4); CHOLESTEROL 193 mg/dL; GFR - MDRD 55 (>89); HDL CHOLESTEROL 60 mg/dL; LDL CHOLESTEROL,CALCULATED 109 mg/dL; LDL/HDL RATIO 1.8 (<4.4); POTASSIUM 3.9 mmol/L (3.5-5.0); SODIUM 141 mmol/L (135-145); TOTAL PROTEIN 7.2 g/dL (6.7-8.2); TRIGLYCERIDES 119 mg/dL; URIC ACID 4.8 mg/dL (2.6-7.2); VLDL CHOLESTEROL 24 mg/dL
[2021-01-23 18:31] LABS: CREATININE,URINE 121.2 mg/dL; MICROALBUM/CREATININE RATIO,UR 165.8 ug/mg (<30.0); MICROALBUMIN,URINE 20.1 mg/dL (0-300.0)
[2021-01-23 18:32] LABS: THYROID STIMULATING HORMONE 0.73 uIU/mL (0.34-5.60)
[2021-01-23 19:17] LABS: GLUCOSE 50 mg/dL (70-100)
[2021-01-23 20:38] LABS: ESTIMATED AVERAGE GLUCOSE 143 mg/dL (70-100); HEMOGLOBIN A1c% 6.6 % (4.27-6.07)
== END 2021-01-23 23:59 | disposition home or self-care (01) ==
LOC: LAB.WCP 08:00
PROVIDERS: ATTEND Family Medicine
DX: E11.9 Type 2 diabetes mellitus without complications (principal)
CPT/HCPCS: 36415; 80053; 80061; 82043; 82570; 83036; 83721; 84443; 84550; 85025

== ENCOUNTER 2021-08-20 11:22 | Outpatient (CLI) | payer MEDICARE ==
[2021-08-20 14:33] LABS: BASOPHILS % (AUTO) 0.6 %; EOSINOPHILS # (AUTO) 0.1 10^3/uL (0.0-0.7); EOSINOPHILS % (AUTO) 1.9 %; HCT - HEMATOCRIT 42.7 % (37.0-47.0); HGB - HEMOGLOBIN 13.3 g/dL (12.0-16.0); LYMPHOCYTES # (AUTO) 1.1 10^3/uL (1.5-3.5); LYMPHOCYTES % (AUTO) 17.1 %; MEAN CORPUSCULAR HEMOGLOBIN 28.2 pg (27.0-31.0); MEAN CORPUSCULAR HGB CONC 31.1 g/dL (32.0-36.0); MEAN CORPUSCULAR VOLUME 90.5 fL (81.0-99.0); MEAN PLATELET VOLUME 9.9 fL (7.9-10.8); MONOCYTES # (AUTO) 0.5 10^3/uL (0.0-1.0); MONOCYTES % (AUTO) 7.7 %; NEUTROPHILS # (AUTO) 4.6 10^3/uL (1.5-6.6); NEUTROPHILS % (AUTO) 72.4 %; PLT - PLATELET COUNT 365 10^3/uL (130-450); RED BLOOD COUNT 4.72 10^6/uL (4.20-5.40); RED CELL DISTRIBUTION WIDTH 14.7 % (12.0-15.0); WHITE BLOOD COUNT 6.4 x10^3/uL (4.8-10.8)
[2021-08-20 15:04] LABS: THYROID STIMULATING HORMONE 0.65 uIU/mL (0.34-5.60)
[2021-08-20 15:06] LABS: ALBUMIN 4.5 g/dL (3.2-5.5); ALBUMIN/GLOBULIN RATIO 1.6 (1.0-2.2); ALKALINE PHOSPHATASE 34 IU/L (42-121); ALT ALANINE AMINOTRANSFERASE 25 IU/L (10-60); AST ASPARTATE AMINOTRANSFERASE 23 IU/L (10-42); BILIRUBIN,TOTAL 0.6 mg/dL (0.2-1.0); BUN - BLOOD UREA NITROGEN 31 mg/dL (6-20); CALCIUM 9.8 mg/dL (8.5-10.3); CARBON DIOXIDE - CO2 27 mmol/L (21-32); CHLORIDE 105 mmol/L (101-111); CHOL/HDL RATIO 3.8 (<4.4); CHOLESTEROL 212 mg/dL; CREATININE 1.1 mg/dL (0.4-1.0); GFR - MDRD 49 (>89); GLUCOSE 71 mg/dL (70-100); HDL CHOLESTEROL 56 mg/dL; LDL CHOLESTEROL,CALCULATED 127 mg/dL; LDL/HDL RATIO 2.3 (<4.4); POTASSIUM 4.2 mmol/L (3.5-5.0); SODIUM 141 mmol/L (135-145); TOTAL PROTEIN 7.3 g/dL (6.7-8.2); TRIGLYCERIDES 145 mg/dL; URIC ACID 5.3 mg/dL (2.6-7.2); VLDL CHOLESTEROL 29 mg/dL
[2021-08-20 19:45] LABS: ESTIMATED AVERAGE GLUCOSE 151 mg/dL (70-100); HEMOGLOBIN A1c% 6.9 % (4.27-6.07)
== END 2021-08-20 11:23 | disposition home or self-care (01) ==
LOC: LAB.S 11:22
PROVIDERS: ATTEND Family Medicine
DX: E11.39 Type 2 diabetes mellitus with other diabetic ophthalmic complication (principal)
CPT/HCPCS: 36415; 80053; 80061; 83036; 83721; 84443; 84550; 85025

== ENCOUNTER 2021-12-26 13:44 | Emergency (ER) | payer MEDICARE ==
--- NOTE | 2021-12-26 14:50 | Ultrasound Report ---
PROCEDURE: Duplex Ext Veins Left INDICATIONS: leg pain TECHNIQUE: Real-time imaging, as well as color and pulse Doppler interrogation, were performed of the lower extr emity deep veins from the inguinal ligament to the popliteal fossa. COMPARISON: None. FINDINGS: The deep veins are normally compressible, and free of intraluminal thrombus. Color and pu lse Doppler demonstrate normal phasic intraluminal flow. There is normal augmentation response to di stal compression maneuver. IMPRESSION: No evidence of left lower extremity DVT. Reviewed by: Ned Romero MD on 12/26/2021 2:48 PM PDT Approved by: Ned Romero MD on 12/26/2021 2:48 PM PDT Station ID: [id number]
[2021-12-26] MEDS ORDERED: NAPROXEN 250 MG TABLET PO STA (14:54)
--- NOTE | 2021-12-26 14:58 | ED Physician Documentation ---
PD HPI LOWER EXT INJURY - Stated complaint Stated Complaint: L FOOT PAIN - Chief complaint Chief Complaint: Ext Problem - History obtained from History obtained from: Patient - History of Present Illness PD HPI LOW EXT INJURY LOCATION: Left, Foot Type of injury: Other (No noted injury. She has been doing normal activity which does not include prolonged walking or repetitive use. Onset of pain gradually and worsening.) Where injury occurred: Home Timing - onset: How many days ago (5-6) Timing - duration: Days (5-6) Timing - details: Gradual onset, Still present (increasingly worse) Associated symptoms: Numbness (chronic numbness in feet due to neuropathy.), Swelling (swelling with some redness dorsum of foot left side only.). No: Weakness Contributing factors: No: Anticoagulated (History of DVT she states several ye ars ago. Was on Coumadin for a while. Not on any anticoagulants the past couple years.) Similar symptoms before: Has not had sx before (History of DVT which had pain in the calf. No prior episodes of foot pain like this.) Recently seen: Clinic (walk in clinic and referred to ED for possible U/S and further eval.) Review of Systems Constitutional: denies: Fever, Chills Nose: denies: Rhinorrhea / runny nose, Congestion Throat: denies: Sore throat Respiratory: denies: Cough GI: denies: Abdominal Pain, Nausea, Vomiting, Diarrhea Skin: denies: Rash, Lesions PD PAST MEDICAL HISTORY - Past Medical History Cardiovascular: Hypertension, Deep vein thrombosis Respiratory: Shortness of breath, CPAP use Neuro: Tremors Endocrine/Autoimmune: None, Type 2 diabetes, HyPERthyroidism GI: None : Incontinence HEENT: Other Psych: None Musculoskeletal: Other Derm: None - Present Medications Home Medications: Ambulatory Orders Medication Instructions Recorded Confirmed Chlor Gerson 1 tab ORAL BID 04/12/18 Felodipine [Felodipine ER] 1 tab ORAL DAILY 04/12/18 04/12/18 Fenofibrate 1 tab ORAL DAILY 04/12/18 04/12/18 Furosemide 1 tab ORAL DAILY 04/12/18 04/12/18 Insulin NPH Hum/Reg Insulin Hm 70 INJ DAILY 04/12/18 [Humulin 70-30 Vial] Metoprolol Tartrate 1 tab ORAL BID 04/12/18 04/12/18 Warfarin [Coumadin] 1 tab ORAL DAILY 04/12/18 04/12/18 lisinopriL [Lisinopril] 1 tab ORAL BID 04/12/18 04/12/18 Naproxen 500 mg PO BID #20 tab.sr 12/26/21 oxyCODONE [Roxicodone] 5 mg PO Q6H PRN #16 tablet 12/26/21 - Allergies Allergies/Adverse Reactions: Allergies Allergy/AdvReac Type Severity Reaction Status Date / Time quinine Allergy Unknown Verified 04/12/18 16:36 sulfamethoxazole Allergy Unknown Verified 04/12/18 16:36 [From Bactrim] trimethoprim [From Bactrim] Allergy Unknown Verified 04/12/18 16:36 PD ED PE NORMAL - Vitals Vital signs reviewed: Yes - General General: Alert and oriented X 3, No acute distress (does not appear uncomrtable sitting in wheelchair), Well developed/nourished - Derm Derm: Normal color, Warm and dry - Extremities Extremities: No calf tenderness / cord, Other (She has swelling with some redness and warmth on the dorsum of the foot with marked tenderness to light touch. Great toe is without any tenderness. No skin sores or lesions nor pustules. The lower leg is without tenderness.) - Neuro Neuro: No motor deficit, Other (Decree sensation on both feet consistent with her neuropathy.) Results - Vitals Vitals: Vital Signs - 24 hr 12/26/21 13:48 Temperature 37 C Heart Rate 86 Respiratory 20 Rate Blood Pressure 131/52 H O2 Saturation 95 Oxygen O2 Source Room air - Rads (name of study) duplex U/S left lower ext Radiology: Prelim report reviewed (no DVT), See rad report PD MEDICAL DECISION MAKING - ED course Complexity details: considered differential (The appearance and character of the pain with gradual onset and marked tenderness is suggestive of gout or pseudogout. No skin sores noted. Redness is not suggestive of cellulitis. Ultrasound is negative.), d/w patient Departure - Departure Disposition: 01 Home, Self Care Clinical Impression: Foot pain, left Gout Qualifiers: Gout site: foot Gout etiology: unspecified cause Chronicity: acute Laterality: left Qualified Code(s): M10.9 - Gout, unspecified Condition: Stable Record reviewed to determine appropriate education?: Yes Instructions: ED Arthritis Gout Prescriptions: Naproxen 500 mg PO BID #20 tab.sr oxyCODONE [Roxicodone] 5 mg PO Q6H PRN #16 tablet PRN Reason: Pain Comments: Your ultrasound is normal, not showing any signs of blood clots. The location and character of your pain is highly suggestive of gout or pseudogout. As a first time, isolated episode, this would not necessarily need much further blood testing or evaluation but treated empirically with anti-inflammatories and pain medicine. However if you have repeat episodes in the near future, then further investigation may be appropriate to check her blood uric acid and calcium levels. Stay well-hydrated. Continue usual medicines. Naproxen 500 mg twice daily with food for the next 7 to 10 days. Continue your usual acetaminophen. Add oxycodone every 6 hours if needed for worse pain. I would anticipate improvement over the next 2 to 3 days and resolved by 3 to 5 days. Recheck if not improving in that timeframe or if worsening. I transmitted your prescriptions to [facility] pharmacy in [place]. I am prescribing a short course of narcotic pain medication for you. These are potentially dangerous and addictive medications that should be used carefully. These medications may constipate you. Take an [id number] stool softener such as docusate twice daily with plenty of water while taking these medications. If you go 24 hours without a bowel movement, take [id number] MiraLAX, per package instructions. Do not drink or drive while taking these medications. If you received narcotic or sedating medications while in the emergency department do not drive for 24 hours. Store this medication in a safe, secure place and out of reach of children. It is a violation of federal law to give or sell this medication to another person or to use in a manner other than prescribed. The ED will not refill narcotic prescriptions, including prescriptions lost or stolen. You can dispose of unwanted medications at the [facility]'s office or at several pharmacies such as [facility].
[2021-12-26 15:20] VITALS: BP 135/59
== END 2021-12-26 15:20 | disposition home or self-care (01) ==
LOC: ED 13:44
DX: M10.9 Gout, unspecified (principal)
CPT/HCPCS: 93971; 99282; 99284; A9270

== ENCOUNTER 2022-04-11 09:04 | Outpatient (CLI) | payer MEDICARE ==
[2022-04-11 12:06] LABS: BASOPHILS # (AUTO) 0.1 10^3/uL (0.0-0.1); BASOPHILS % (AUTO) 0.8 %; EOSINOPHILS # (AUTO) 0.2 10^3/uL (0.0-0.7); EOSINOPHILS % (AUTO) 3.6 %; HCT - HEMATOCRIT 37.4 % (37.0-47.0); LYMPHOCYTES # (AUTO) 1.4 10^3/uL (1.5-3.5); LYMPHOCYTES % (AUTO) 21.1 %; MEAN CORPUSCULAR HEMOGLOBIN 28.1 pg (27.0-31.0); MEAN CORPUSCULAR HGB CONC 29.4 g/dL (32.0-36.0); MEAN CORPUSCULAR VOLUME 95.7 fL (81.0-99.0); MEAN PLATELET VOLUME 10.1 fL (7.9-10.8); MONOCYTES # (AUTO) 0.5 10^3/uL (0.0-1.0); MONOCYTES % (AUTO) 7.9 %; NEUTROPHILS # (AUTO) 4.3 10^3/uL (1.5-6.6); NEUTROPHILS % (AUTO) 66.1 %; PLT - PLATELET COUNT 385 10^3/uL (130-450); RED BLOOD COUNT 3.91 10^6/uL (4.20-5.40); RED CELL DISTRIBUTION WIDTH 14.3 % (12.0-15.0); WHITE BLOOD COUNT 6.5 x10^3/uL (4.8-10.8)
[2022-04-11 12:33] LABS: ALBUMIN 4.2 g/dL (3.2-5.5); ALBUMIN/GLOBULIN RATIO 1.4 (1.0-2.2); BILIRUBIN,TOTAL 0.5 mg/dL (0.2-1.0); CALCIUM 9.9 mg/dL (8.5-10.3); CREATININE 1.7 mg/dL (0.4-1.0); POTASSIUM 4.3 mmol/L (3.5-5.0); TOTAL PROTEIN 7.2 g/dL (6.7-8.2)
[2022-04-11 12:44] LABS: THYROID STIMULATING HORMONE 0.84 uIU/mL (0.34-5.60)
[2022-04-11 12:45] LABS: ESTIMATED AVERAGE GLUCOSE 123 mg/dL (70-100); HEMOGLOBIN A1c% 5.9 % (4.27-6.07)
== END 2022-04-11 09:05 | disposition home or self-care (01) ==
LOC: LAB.N 09:04
PROVIDERS: ATTEND Nurse Practitioner Family
DX: I13.10 Hypertensive heart and chronic kidney disease without heart failure, with stage 1 through stage 4 chronic kidney disease, or unspecified chronic kidney disease (principal); E11.22 Type 2 diabetes mellitus with diabetic chronic kidney disease; N18.30 Chronic kidney disease, stage 3 unspecified; G47.62 Sleep related leg cramps; R53.82 Chronic fatigue, unspecified
CPT/HCPCS: 36415; 80053; 82607; 83036; 83735; 84443; 85025

== ENCOUNTER 2022-04-17 10:58 | Outpatient (CLI) | payer MEDICARE ==
[2022-04-17 18:05] LABS: HCT - HEMATOCRIT 39.4 % (37.0-47.0); HGB - HEMOGLOBIN 11.7 g/dL (12.0-16.0); MEAN CORPUSCULAR HEMOGLOBIN 28.3 pg (27.0-31.0); MEAN CORPUSCULAR HGB CONC 29.7 g/dL (32.0-36.0); MEAN CORPUSCULAR VOLUME 95.2 fL (81.0-99.0); MEAN PLATELET VOLUME 10.2 fL (7.9-10.8); RED BLOOD COUNT 4.14 10^6/uL (4.20-5.40); RED CELL DISTRIBUTION WIDTH 14.2 % (12.0-15.0); WHITE BLOOD COUNT 7.2 x10^3/uL (4.8-10.8)
[2022-04-17 18:50] LABS: ALBUMIN 4.3 g/dL (3.2-5.5); ALBUMIN/GLOBULIN RATIO 1.4 (1.0-2.2); BILIRUBIN,TOTAL 0.6 mg/dL (0.2-1.0); CALCIUM 10.3 mg/dL (8.5-10.3); CREATININE 1.6 mg/dL (0.4-1.0); POTASSIUM 4.7 mmol/L (3.5-5.0); TOTAL PROTEIN 7.3 g/dL (6.7-8.2)
== END 2022-04-17 10:59 | disposition home or self-care (01) ==
LOC: LAB.N 10:58
PROVIDERS: ATTEND Nurse Practitioner Family
DX: E11.22 Type 2 diabetes mellitus with diabetic chronic kidney disease (principal); D50.9 Iron deficiency anemia, unspecified
CPT/HCPCS: 36415; 80053; 82728; 83540; 84466; 85027

== ENCOUNTER 2022-07-01 12:38 | Outpatient (CLI) | payer MEDICARE ==
--- NOTE | 2022-07-02 11:56 | Mammography Report ---
BILATERAL DIGITAL SCREENING MAMMOGRAM 3D/2D: 07/01/2022 CLINICAL: Routine screening. Comparison is made to exams dated: 08/22/2020 mammogram, 12/27/2018 mammogram, 02/25/2016 mammogram, mammogram, 09/01/2012 mammogram, and 03/24/2011 mammogram - [facility]. Both breasts are almost entirely fatty (category a/<25% glandular tissue). No significant masses, calcifications, or other findings are seen in either breast. There has been no significant interval change. IMPRESSION: NEGATIVE There is no mammographic evidence of malignancy. A 1 year screening mammogram is recommended. Based on the Tyrer Cuzick model (a risk assessment model) the patients lifetime risk is 2.4% and her 10 year risk is 1.5%. According to the ACR, ACS, and NCCN guidelines, an annual breast MRI exam flavio g with mammogram is recommended if the patients lifetime risk is 20% or greater. This exam was interpreted at Station ID: [id number]. NOTE: For mammograms, a report in lay terms will be sent to the patient. Approximately 15% of breast malignancies will not be visualized mammographically. In the management of a palpable breast mass, a negative mammogram must not discourage biopsy of a clinically suspicious lesion. Electronically Signed By: Miya bower/kale:07/01/2022 17:57:15 ACR BI-RADS Category 1: Negative 3341F PARENCHYMAL PATTERN: (F) - The breast(s) demonstrate(s) diffuse fatty replacement. BI-RADS CATEGORY: (1) - 1 RECOMMENDATION: (ANNUAL) - Recommend routine annual screening mammography. [id number] 1 year screening LATERALITY: (B)
== END 2022-07-01 12:39 | disposition home or self-care (01) ==
LOC: DI.N 12:38
DX: Z12.31 Encounter for screening mammogram for malignant neoplasm of breast (principal)

== ENCOUNTER 2022-07-31 10:03 | Outpatient (CLI) | payer MEDICARE ==
[2022-07-31 12:29] LABS: BASOPHILS % (AUTO) 0.7 %; EOSINOPHILS # (AUTO) 0.2 10^3/uL (0.0-0.7); EOSINOPHILS % (AUTO) 3.4 %; HCT - HEMATOCRIT 37.7 % (37.0-47.0); HGB - HEMOGLOBIN 11.4 g/dL (12.0-16.0); LYMPHOCYTES # (AUTO) 1.3 10^3/uL (1.5-3.5); LYMPHOCYTES % (AUTO) 21.5 %; MEAN CORPUSCULAR HEMOGLOBIN 28.1 pg (27.0-31.0); MEAN CORPUSCULAR HGB CONC 30.2 g/dL (32.0-36.0); MEAN CORPUSCULAR VOLUME 93.1 fL (81.0-99.0); MONOCYTES # (AUTO) 0.5 10^3/uL (0.0-1.0); MONOCYTES % (AUTO) 8.2 %; NEUTROPHILS # (AUTO) 3.9 10^3/uL (1.5-6.6); NEUTROPHILS % (AUTO) 65.5 %; PLT - PLATELET COUNT 339 10^3/uL (130-450); RED BLOOD COUNT 4.05 10^6/uL (4.20-5.40); RED CELL DISTRIBUTION WIDTH 14.3 % (12.0-15.0)
[2022-07-31 12:37] LABS: ESTIMATED AVERAGE GLUCOSE 137 mg/dL (70-100); HEMOGLOBIN A1c% 6.4 % (4.27-6.07)
[2022-07-31 12:56] LABS: ALBUMIN 4.1 g/dL (3.2-5.5); ALBUMIN/GLOBULIN RATIO 1.5 (1.0-2.2); ALKALINE PHOSPHATASE 36 IU/L (42-121); ALT ALANINE AMINOTRANSFERASE 20 IU/L (10-60); AST ASPARTATE AMINOTRANSFERASE 21 IU/L (10-42); BILIRUBIN,TOTAL 0.5 mg/dL (0.2-1.0); BUN - BLOOD UREA NITROGEN 40 mg/dL (6-20); CALCIUM 9.6 mg/dL (8.5-10.3); CARBON DIOXIDE - CO2 25 mmol/L (21-32); CHLORIDE 106 mmol/L (101-111); CHOL/HDL RATIO 3.3 (<4.4); CHOLESTEROL 183 mg/dL; CREATININE 1.7 mg/dL (0.4-1.0); GFR - MDRD 30 (>89); GLUCOSE 97 mg/dL (70-100); HDL CHOLESTEROL 56 mg/dL; LDL CHOLESTEROL,CALCULATED 93 mg/dL; LDL/HDL RATIO 1.7 (<4.4); SODIUM 141 mmol/L (135-145); TOTAL PROTEIN 6.9 g/dL (6.7-8.2); TRIGLYCERIDES 172 mg/dL; VLDL CHOLESTEROL 34 mg/dL
[2022-07-31 13:05] LABS: THYROID STIMULATING HORMONE 0.64 uIU/mL (0.34-5.60)
== END 2022-07-31 10:04 | disposition home or self-care (01) ==
LOC: LAB.N 10:03
PROVIDERS: ATTEND Physician Assistant Medical
DX: E11.22 Type 2 diabetes mellitus with diabetic chronic kidney disease (principal); E78.2 Mixed hyperlipidemia; E03.9 Hypothyroidism, unspecified; D50.9 Iron deficiency anemia, unspecified
CPT/HCPCS: 36415; 80053; 80061; 83036; 83721; 84443; 85025

== ENCOUNTER 2022-09-12 15:13 | Outpatient (CLI) | payer MEDICARE ==
--- NOTE | 2022-09-12 16:41 | Ultrasound Report ---
PROCEDURE: Retroperitoneal INDICATIONS: STAGE 4 KIDNEY DISEASE TECHNIQUE: Real-time scanning was performed of the retroperitoneal organs, with image documentation. COMPARISON: None. FINDINGS: Kidneys: Kidneys are normal in size. Right kidney measures 12.4 cm long; left kidney measures 12.6 cm long. Right renal cortical thickness is 1.6 cm; left renal cortical thickness is 1 cm. No solid masses or hydronephrosis. There are bilateral renal cysts present the largest on the right measures 5 cm in maximal dimension the largest on the left measures 1.7 cm. There are questionable small vascu lar calcifications versus stones involving both kidneys. If further evaluation clinically indicated n oncontrast CT of the abdomen and pelvis without contrast may be of further clinical value. Bladder: Pre-void bladder volume is 322.5 mL. Post-void residual is 2.3 mL. Pre-void images demons trate no intraluminal masses or stones. On pre-void images, both ureteral jets are noted with color Doppler interrogation. (Of note, ureteral jets may not be detectable in up to 25% of cases due to in sufficient differences in specific gravity between ureteral and bladder urine). Miscellaneous: No free abdominal fluid. IMPRESSION: 1. Bilateral renal cysts the largest on the right measures 5 cm in maximal dimension the largest on t he left measures 1.7 cm in maximal dimension. 2. Normal-appearing bladder. 3. Questionable vascular calcifications versus small renal calculi. If further evaluation clinically indicated noncontrast CT of the abdomen and pelvis may be of further clinical value. Reviewed by: Ulices Thomas MD on 09/12/2022 4:40 PM PDT Approved by: Ulices Thomas MD on 09/12/2022 4:40 PM PDT Station ID: [id number]
== END 2022-09-12 15:14 | disposition home or self-care (01) ==
LOC: DI 15:13
PROVIDERS: ATTEND Internal Medicine Nephrology
DX: N18.4 Chronic kidney disease, stage 4 (severe) (principal); N28.1 Cyst of kidney, acquired

== ENCOUNTER 2022-09-30 15:49 | Outpatient (CLI) | payer MEDICARE ==
[2022-09-30 17:56] LABS: CALCIUM 9.7 mg/dL (8.5-10.3); CREATININE 1.5 mg/dL (0.4-1.0); PHOSPHORUS 5.1 mg/dL (2.5-4.6); POTASSIUM 4.2 mmol/L (3.5-5.0)
[2022-09-30 17:57] LABS: CREATININE,URINE 122.2 mg/dL; PROTEIN/CREATININE RATIO,URINE 0.5 (<=0.2)
[2022-09-30 19:43] LABS: FOLATE > 49.60 ng/mL (5.90 - >24.8)
[2022-10-02 21:07] LABS: T-TRANSGLUTAMINASE (TTG) IGA <2 U/mL (0-3); T-TRANSGLUTAMINASE (TTG) IGG 3 U/mL (0-5)
== END 2022-09-30 15:50 | disposition home or self-care (01) ==
LOC: LAB.N 15:49
PROVIDERS: ATTEND Internal Medicine Gastroenterology
DX: E61.1 Iron deficiency (principal); R19.7 Diarrhea, unspecified; R15.9 Full incontinence of feces; N05.9 Unspecified nephritic syndrome with unspecified morphologic changes; D64.9 Anemia, unspecified; N25.81 Secondary hyperparathyroidism of renal origin; R80.9 Proteinuria, unspecified
CPT/HCPCS: 36415; 80048; 82570; 82607; 82746; 83516; 83970; 84100; 84156; 86364

== ENCOUNTER 2023-03-05 12:39 | Outpatient (CLI) | payer MEDICARE ==
[2023-03-05 17:35] LABS: BASOPHILS # (AUTO) 0.1 10^3/uL (0.0-0.1); BASOPHILS % (AUTO) 0.6 %; EOSINOPHILS # (AUTO) 0.1 10^3/uL (0.0-0.7); EOSINOPHILS % (AUTO) 1.4 %; HCT - HEMATOCRIT 37.4 % (37.0-47.0); HGB - HEMOGLOBIN 11.6 g/dL (12.0-16.0); LYMPHOCYTES % (AUTO) 12.6 %; MEAN CORPUSCULAR HEMOGLOBIN 28.9 pg (27.0-31.0); MEAN CORPUSCULAR VOLUME 93.3 fL (81.0-99.0); MEAN PLATELET VOLUME 10.2 fL (7.9-10.8); MONOCYTES # (AUTO) 0.5 10^3/uL (0.0-1.0); MONOCYTES % (AUTO) 5.8 %; NEUTROPHILS # (AUTO) 6.6 10^3/uL (1.5-6.6); NEUTROPHILS % (AUTO) 79.4 %; PLT - PLATELET COUNT 319 10^3/uL (130-450); RED BLOOD COUNT 4.01 10^6/uL (4.20-5.40); WHITE BLOOD COUNT 8.3 x10^3/uL (4.8-10.8)
[2023-03-05 17:45] LABS: ALBUMIN 4.4 g/dL (3.2-5.5); ALBUMIN/GLOBULIN RATIO 1.8 (1.0-2.2); ALKALINE PHOSPHATASE 36 IU/L (42-121); ALT ALANINE AMINOTRANSFERASE 17 IU/L (10-60); AST ASPARTATE AMINOTRANSFERASE 21 IU/L (10-42); BILIRUBIN,TOTAL 0.3 mg/dL (0.2-1.0); BUN - BLOOD UREA NITROGEN 23 mg/dL (6-20); CALCIUM 9.7 mg/dL (8.5-10.3); CARBON DIOXIDE - CO2 27 mmol/L (21-32); CHLORIDE 108 mmol/L (101-111); CHOL/HDL RATIO 3.2 (<4.4); CHOLESTEROL 172 mg/dL; CREATININE 1.4 mg/dL (0.6-1.3); GFR - MDRD 37 (>89); GLUCOSE 149 mg/dL (74-104); HDL CHOLESTEROL 53 mg/dL; LDL CHOLESTEROL,CALCULATED 58 mg/dL; LDL/HDL RATIO 1.1 (<4.4); POTASSIUM 4.2 mmol/L (3.5-4.5); SODIUM 143 mmol/L (135-145); TOTAL PROTEIN 6.8 g/dL (6.4-8.9); TRIGLYCERIDES 305 mg/dL (48-352); VLDL CHOLESTEROL 61 mg/dL
[2023-03-05 17:59] LABS: THYROID STIMULATING HORMONE 0.87 uIU/mL (0.34-5.60)
[2023-03-05 18:05] LABS: ESTIMATED AVERAGE GLUCOSE 137 mg/dL (70-100); HEMOGLOBIN A1c% 6.4 % (4.27-6.07)
== END 2023-03-05 12:40 | disposition home or self-care (01) ==
LOC: LAB.N 12:39
PROVIDERS: ATTEND Nurse Practitioner Family
DX: I13.10 Hypertensive heart and chronic kidney disease without heart failure, with stage 1 through stage 4 chronic kidney disease, or unspecified chronic kidney disease (principal); E11.22 Type 2 diabetes mellitus with diabetic chronic kidney disease; N18.32 Chronic kidney disease, stage 3b; D50.9 Iron deficiency anemia, unspecified
CPT/HCPCS: 36415; 80053; 80061; 83036; 83721; 84443; 85025

== ENCOUNTER 2023-06-03 10:49 | Outpatient (CLI) | payer MEDICARE ==
[2023-06-03 17:40] LABS: BASOPHILS # (AUTO) 0.1 10^3/uL (0.0-0.1); EOSINOPHILS # (AUTO) 0.2 10^3/uL (0.0-0.7); EOSINOPHILS % (AUTO) 3.2 %; HCT - HEMATOCRIT 40.4 % (37.0-47.0); LYMPHOCYTES # (AUTO) 1.2 10^3/uL (1.5-3.5); LYMPHOCYTES % (AUTO) 20.6 %; MEAN CORPUSCULAR HEMOGLOBIN 28.5 pg (27.0-31.0); MEAN CORPUSCULAR HGB CONC 29.7 g/dL (32.0-36.0); MEAN PLATELET VOLUME 10.5 fL (7.9-10.8); MONOCYTES # (AUTO) 0.5 10^3/uL (0.0-1.0); MONOCYTES % (AUTO) 8.3 %; NEUTROPHILS # (AUTO) 3.9 10^3/uL (1.5-6.6); NEUTROPHILS % (AUTO) 66.6 %; PLT - PLATELET COUNT 303 10^3/uL (130-450); RED BLOOD COUNT 4.21 10^6/uL (4.20-5.40); RED CELL DISTRIBUTION WIDTH 14.4 % (12.0-15.0); WHITE BLOOD COUNT 5.9 x10^3/uL (4.8-10.8)
[2023-06-03 18:09] LABS: ALBUMIN 4.4 g/dL (3.2-5.5); ALBUMIN/GLOBULIN RATIO 1.7 (1.0-2.2); ALKALINE PHOSPHATASE 36 IU/L (42-121); ALT ALANINE AMINOTRANSFERASE 16 IU/L (10-60); AST ASPARTATE AMINOTRANSFERASE 19 IU/L (10-42); BILIRUBIN,TOTAL 0.4 mg/dL (0.2-1.0); BUN - BLOOD UREA NITROGEN 28 mg/dL (6-20); CALCIUM 10.3 mg/dL (8.5-10.3); CARBON DIOXIDE - CO2 27 mmol/L (21-32); CHLORIDE 107 mmol/L (101-111); CHOL/HDL RATIO 3.8 (<4.4); CHOLESTEROL 212 mg/dL; CREATININE 1.3 mg/dL (0.6-1.3); GFR - MDRD 40 (>89); GLUCOSE 87 mg/dL (74-104); HDL CHOLESTEROL 56 mg/dL; LDL CHOLESTEROL,CALCULATED 95 mg/dL; LDL/HDL RATIO 1.7 (<4.4); POTASSIUM 4.1 mmol/L (3.5-4.5); SODIUM 142 mmol/L (135-145); TRIGLYCERIDES 307 mg/dL (48-352); VLDL CHOLESTEROL 61 mg/dL
[2023-06-03 18:15] LABS: THYROID STIMULATING HORMONE 1.27 uIU/mL (0.34-5.60)
[2023-06-03 21:37] LABS: ESTIMATED AVERAGE GLUCOSE 151 mg/dL (70-100); HEMOGLOBIN A1c% 6.9 % (4.27-6.07)
== END 2023-06-03 10:50 | disposition home or self-care (01) ==
LOC: LAB.N 10:49
PROVIDERS: ATTEND Nurse Practitioner Family
DX: I12.9 Hypertensive chronic kidney disease with stage 1 through stage 4 chronic kidney disease, or unspecified chronic kidney disease (principal); N18.32 Chronic kidney disease, stage 3b; E78.2 Mixed hyperlipidemia; E03.9 Hypothyroidism, unspecified
CPT/HCPCS: 36415; 80053; 80061; 83036; 83721; 84443; 85025

== ENCOUNTER 2023-08-31 10:12 | Outpatient (CLI) | payer MEDICARE ==
[2023-08-31 12:17] LABS: ESTIMATED AVERAGE GLUCOSE 146 mg/dL (70-100); HEMOGLOBIN A1c% 6.7 % (4.27-6.07)
[2023-08-31 12:30] LABS: BUN - BLOOD UREA NITROGEN 47 mg/dL (6-20); CALCIUM 10.4 mg/dL (8.5-10.3); CARBON DIOXIDE - CO2 24 mmol/L (21-32); CHLORIDE 109 mmol/L (101-111); CHOL/HDL RATIO 3.2 (<4.4); CHOLESTEROL 173 mg/dL; CREATININE 1.9 mg/dL (0.6-1.3); GFR - MDRD 26 (>89); GLUCOSE 118 mg/dL (74-104); HDL CHOLESTEROL 54 mg/dL; LDL CHOLESTEROL,CALCULATED 68 mg/dL; LDL/HDL RATIO 1.3 (<4.4); POTASSIUM 4.2 mmol/L (3.5-4.5); SODIUM 140 mmol/L (135-145); TRIGLYCERIDES 255 mg/dL (48-352); VLDL CHOLESTEROL 51 mg/dL
== END 2023-08-31 10:13 | disposition home or self-care (01) ==
LOC: LAB.N 10:12
PROVIDERS: ATTEND Nurse Practitioner Family
DX: I12.9 Hypertensive chronic kidney disease with stage 1 through stage 4 chronic kidney disease, or unspecified chronic kidney disease (principal); E11.22 Type 2 diabetes mellitus with diabetic chronic kidney disease; N18.32 Chronic kidney disease, stage 3b; E66.01 Morbid (severe) obesity due to excess calories; E78.2 Mixed hyperlipidemia
CPT/HCPCS: 36415; 80048; 80061; 83036; 83721

== ENCOUNTER 2023-09-21 12:12 | Outpatient (CLI) | payer MEDICARE ==
--- NOTE | 2023-09-21 14:46 | XRAY Report ---
PROCEDURE: Shoulder 2+V RT INDICATIONS: SHOULDER JOINT PAIN, RIGHT TECHNIQUE: 3 views of the shoulder were acquired. COMPARISON: None. FINDINGS: Bones: No acute fractures. Mild widening of the joint measuring 9 mm. Severe degenerative changes of the glenohumeral joint with joint space narrowing and subchondral sclerosis. Severe superior migrati on of the humeral head. Heterotopic calcification is noted adjacent to the humeral head. No suspiciou s bony lesions. Visualized ribs appear intact. Soft tissues: No suspicious soft tissue calcifications. The visualized lungs are within normal limi ts. IMPRESSION: 1.Severe degenerative changes of the glenohumeral joint. 2.Superior migration of the humeral head with abutment of the acromion with associated subchondral sc lerosis and cystic changes. Findings are consistent with chronic rotator cuff pathology. Consider MRI for further evaluation as indicated. 3.Mild widening of the acromioclavicular joint, possibly chronic in etiology. Recommend correlation w ith point tenderness. Reviewed by: Augustine Burt MD on 09/21/2023 2:44 PM PDT Approved by: Augustine Burt MD on 09/21/2023 2:44 PM PDT Station ID: [id number]
== END 2023-09-21 12:13 | disposition home or self-care (01) ==
LOC: DI.N 12:12
PROVIDERS: ATTEND Nurse Practitioner Family
DX: M19.011 Primary osteoarthritis, right shoulder (principal)

== ENCOUNTER 2023-11-11 13:11 | Outpatient (CLI) | payer MEDICARE ==
--- NOTE | 2023-11-11 13:50 | Sleep Patient Instructions ---
Sleep Center Visit Summary - Patient Visit Information Reason for Visit: Initial consultation - Patient Instructions Additional Instructions: You will continue with CPAP therapy with pressure set at 9 cmH2O. A supply prescription will be updated with your DME. I have added an order to update your PAP machine. Please call the office to schedule a compliance follow up once you get your new device. We encourage you to continue to try to lose weight. Please follow up with the sleep care office one month after obtaining new device. - Clinic Information Contact: [facility] [address] [place] [address] [email or web address] T: [phone]
--- NOTE | 2023-11-11 13:54 | SLEEP CARE CONSULTATION ---
Information from patient questionnaire entered by Soraya Lou. I have reviewed and concur with the information entered by Soraya Lou. This document represents the service I personally performed and the decisions made by me, Glo Isidro ARNP. 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) Date of Onset: 8-10YRS Usual bedtime: 4959-0302 Time it takes to fall asleep: VARIES Snores at night: No Observed to quit breathing while asleep: No Number of times waking at night: 1 Reasons for waking at night: reports: Bathroom Toss, Turn, or Twitch while sleeping: Yes Recalls having dreams: Yes Usually gets out of bed at: 0900 Feels refreshed in the morning: No Morning headache: No Sleepy or fatigued during the day: Yes Ever fallen asleep while driving: No Takes day naps: Yes Dreams during day naps: No Prior sleep studies: Yes Year and Where: 2016 - [facility] Type of Sleep Study: Polysomnography Additional HPI information: WEI BABIN was previously diagnosed to have moderate, AHI 21.4, obstructive sleep apnea-hypopnea syndrome as seen in sleep study dated 12/23/2016 and returned today to re-establish care for CPAP therapy. - Parasomnia Symptoms Ever been unable to move upon waking from sleep: No Walks in sleep: No Talks in sleep: No Ever acted out dreams in sleep: No Ever felt weak in the knees when startled or emotional: No Bothered by creepy, crawly, restless sensations in legs: Yes Problems with memory or concentration: No CPAP Compliance Data - Data Reviewed with Patient Average duration of nightly device use: 8 hours 48 minutes Compliance rate %: 99 (89/90 days used) Current pressure setting (cmH2O): 9 Average residual AHI: 0.6 Central apnea: 0.1 Obstructive apnea: 0.1 Average large leak: 5.1 Compliance data discussion: She has a Resmed Airsense 10 that was last updated in . She is getting her supplies from [employer]. She is using a nasal pillows mask, P10. Her machine is giving her an error message that the motor has exceeded it life. Subjective Patient concerns: denies: aerophagia, mask discomfort, air blowing in eyes, mask leak noise, condensation in mask/hose, nasal congestion, dry mouth, nose, throat, epistaxis Observed to snore while using device: No Current pressure setting perceived as: comfortable On therapy, patient: reports: sleeping better, awakening more refreshed, being more awake and alert during the day, more rested overall. denies: drowsiness while driving Initial [place] Sleepiness Scale score: 9 (in 2017) Current [place] Sleepiness Scale score: 11 (10/04/23) Past Medical History Past Medical History: reports: Claustrophobia, Diabetes, Arthritis, Insulin resistance, Gout, Hypothyroidism, Anemia, Other (CHRONIC KIDNEY DISEASE, HYPERLIPIDEMIA) Social History The patient's occupation is a RE. Patient is Single and lives in [place]. Have you smoked in the past 12 months: No Cigarettes per day (20/pack): 10 Years of smokin Quit date: 1970 Smoking Pack Years: 3.5 Alcohol use: Yes Alcohol amount and frequency: 1 BEER OR WINE RARELY Caffeine use: Yes Caffeine amount and frequency: TRY TO STICK TO DECAF TEA DAILY Family History Family history of sleep disordered breathing: No Allergies and Home Medications Known drug allergies: Yes ( LISTED ) Drug allergies reviewed: Yes Home medication list reviewed: Yes (as listed) Allergy and home medication list: Allergies quinine Allergy (Verified 11/05/23 12:46) Unknown sulfamethoxazole [From Bactrim] Allergy (Verified 11/05/23 12:46) Unknown trimethoprim [From Bactrim] Allergy (Verified 11/05/23 12:46) Unknown Home Medications Medication Instructions Recorded Confirmed Last Taken Type Felodipine [Felodipine ER] 1 tab ORAL DAILY 04/12/18 11/11/23 Unknown History Fenofibrate 1 tab ORAL DAILY 04/12/18 11/11/23 Unknown History Insulin NPH Hum/Reg Insulin Hm 70 tab INJ DAILY 04/12/18 11/11/23 Unknown History [Humulin 70-30 Vial] Metoprolol Tartrate 1 tab ORAL BID 04/12/18 11/11/23 Unknown History lisinopriL [Lisinopril] 1 tab ORAL BID 04/12/18 11/11/23 Unknown History Acetaminophen See Rx Instructions .ROUTE .COMPLEX 11/11/23 11/11/23 Unknown History Ascorbic Acid [Vitamin C] See Rx Instructions .ROUTE .COMPLEX 11/11/23 11/11/23 Unknown History Biotin See Rx Instructions .ROUTE .COMPLEX 11/11/23 11/11/23 Unknown History Calcium Carbonate [Calcium] See Rx Instructions .ROUTE .COMPLEX 11/11/23 11/11/23 Unknown History Cholecalciferol [Vitamin D3] See Rx Instructions .ROUTE .COMPLEX 11/11/23 Unknown History Levothyroxine [Synthroid] See Rx Instructions .ROUTE .COMPLEX 11/11/23 11/11/23 Unknown History Magnesium See Rx Instructions .ROUTE .COMPLEX 11/11/23 11/11/23 Unknown History Multivitamin See Rx Instructions .ROUTE .[facility] 11/11/23 11/11/23 Unknown History Psyllium Husk [Psyllium Fiber] See Rx Instructions .ROUTE .COMPLEX 11/11/23 11/11/23 Unknown History Rosuvastatin Calcium See Rx Instructions .ROUTE .COMPLEX 11/11/23 11/11/23 Unknown History Spironolactone [Aldactone] See Rx Instructions .ROUTE .COMPLEX 11/11/23 11/11/23 Unknown History Vit B2/Niacin/B6/B12/Dexpanth [B See Rx Instructions .ROUTE .[facility] 11/11/23 11/11/23 Unknown History Complex Sublingual Liquid] Zinc Glycinate [Zinc] See Rx Instructions .ROUTE .COMPLEX 11/11/23 11/11/23 Un known History allopurinoL [Allopurinol] See Rx Instructions .ROUTE .[facility] 11/11/23 11/11/23 Unknown History glucosamine HCL [Glucosamine HCl] See Rx Instructions .ROUTE .COMPLEX 11/11/23 11/11/23 Unknown History metFORMIN [Glucophage] See Rx Instructions .ROUTE .[facility]X 11/11/23 11/11/23 Unknown History Review of Systems Cardiovascular: reports: high blood pressure, leg or foot swelling Respiratory: reports: shortness of breath, chronic cough Gastrointestinal: reports: diarrhea Urinary: reports: incontinence, frequency Neurological: reports: gait or balance problems Psychiatric: reports: claustrophobia Ear/Nose/Throat: reports: nasal congestion, sinus problems, dry mouth/throat, tonsillectomy, wisdom teeth removed Endocrine: reports: thyroid disease, sluggishness, excessive thirst, increased urination Musculoskeletal: reports: joint pain, neck pain, back pain, joint swelling, muscle pain or cramping, mobility problems Immunologic: reports: sneezing Physical Exam Vital signs obtained and entered by: SORAYA Denny MA Blood Pressure: 146/68 (LEFT ARM) Cuff size: long Heart Rate: 74 O2 Saturation: 92 Height: 5 ft 4 in Weight: 266 lb Body Mass Index: 45.6 BMI Classification: Morbidly Obese Neck circumference: 15.5 Heart: regular rate and rhythm Lungs: clear bilaterally Impression and Plan 1. Obstructive Sleep Apnea-Hypopnea Syndrome, moderate, with [fair] treatment compliance and [] apnea control. On CPAP therapy, the patient has better sleep quality and is more rested overall. [] The patients CPAP is over 5 years old and of reasonable use. [In addition, it is starting to make louder noise, a sign of malfunction. ]Thus, the CPAP will be updated. [The new CPAPs also have a better humidity system which could assist control of patients dryness symptoms. ]A DWO prescription will be made. Compliance guidelines for new device and follow up discussed. Patient's apnea severity and rationale for treatment to reduce apnea, improve sleep quality and reduce cardiovascular and cerebrovascular events was reviewed. I also reviewed the benefit of consistent device use of [CPAP] for [hypertension]. 2. [Obesity][Overweight], unspecified. Currently patients BMI is []. Obesity increases the risk of apnea, CPAP pressure requirements and overall health risks especially cardiovascular and diabetes. Thus patient is advised to[ continue to try to] lose weight. * Continue CPAP pressure at [9] cmH2O * Change [auto] CPAP pressure to [] cmH2O * Update machine * Update supply prescription * Notify me if snoring with mask or feeling that the pressure is too much or too little * Attempt to lose weight * Call this office if any problems using CPAP * Return for follow up [one month after obtaining new device], or sooner if concerns arise Counseling Topics: Spare mask, Weight loss health impact Prescriptions: Auto CPAP, Device supplies Plan: new device and compliance follow up Visit Type: In Office Time Spent with Patient (minutes): 23 Provider Statement: I spent 100% of the Face to Face Visit with the patient with greater than 50% spent counseling the patient and coordination of care.
[2023-11-11 14:02] VITALS: BP 146/68; O2SAT 92
== END 2023-11-11 13:12 | disposition home or self-care (01) ==
LOC: SC 13:11
PROVIDERS: ATTEND Nurse Practitioner Family
DX: G47.33 Obstructive sleep apnea (adult) (pediatric) (principal); E66.01 Morbid (severe) obesity due to excess calories; Z68.42 Body mass index [BMI] 45.0-49.9, adult
CPT/HCPCS: 99202; G0463; 99212

== ENCOUNTER 2023-11-11 14:02 | Outpatient (CLI) | payer MEDICARE ==
[2023-11-11 18:08] LABS: CALCIUM 9.5 mg/dL (8.5-10.3); CREATININE 1.7 mg/dL (0.6-1.3); POTASSIUM 4.9 mmol/L (3.5-4.5)
== END 2023-11-11 14:03 | disposition home or self-care (01) ==
LOC: LAB.N 14:02
PROVIDERS: ATTEND Internal Medicine Nephrology
DX: E11.9 Type 2 diabetes mellitus without complications (principal); N05.9 Unspecified nephritic syndrome with unspecified morphologic changes
CPT/HCPCS: 36415; 80048

== ENCOUNTER 2023-12-15 10:41 | Outpatient (CLI) | payer MEDICARE ==
[2023-12-15 18:10] LABS: ALBUMIN 4.3 g/dL (3.2-5.5); CREATININE 2.3 mg/dL (0.6-1.3); PHOSPHORUS 5.5 mg/dL (2.5-5.0); POTASSIUM 5.5 mmol/L (3.5-4.5)
== END 2023-12-15 10:42 | disposition home or self-care (01) ==
LOC: LAB.N 10:41
PROVIDERS: ATTEND Nurse Practitioner Family
DX: I12.9 Hypertensive chronic kidney disease with stage 1 through stage 4 chronic kidney disease, or unspecified chronic kidney disease (principal); N18.4 Chronic kidney disease, stage 4 (severe); E83.52 Hypercalcemia
CPT/HCPCS: 36415; 80069; 82310; 83970

== ENCOUNTER 2024-03-02 17:18 | Outpatient (CLI) | payer MEDICARE | END 2024-03-02 23:59 | disposition E | LOC: EMS 17:18 ==